=== PATIENT | female | born 1990 | race Caucasian/White ===

== ENCOUNTER 2018-12-11 11:21 | Emergency (ER) | payer MEDICAID ==
[~2018-12-11] VITALS: Ht 152.4 cm; Wt 54.0 kg
[2018-12-11 11:23] VITALS: Ht 152.4 cm; Wt 54.0 kg
[2018-12-11 13:00] VITALS: BP 122/78
== END 2018-12-11 13:00 | disposition home or self-care (01) ==
LOC: EDBD 11:21 → ED 11:21
DX: R07.89 Other chest pain (principal); R53.1 Weakness
CPT/HCPCS: Q0092

== ENCOUNTER 2019-04-12 20:58 | Emergency (ER) | payer MEDICAID ==
[~2019-04-12] VITALS: Ht 175.3 cm; Wt 51.3 kg
[2019-04-12 21:20] VITALS: Ht 175.3 cm; Wt 51.3 kg
[2019-04-12 22:47] LABS: BASOPHIL % 0.1 % (0-2); PLATELET COUNT 160 x10^3mcL (130-400); RED CELL DISTRIBUTION WIDTH 13.6 % (11.5-14.5)
[2019-04-12 22:52] LABS: CALCIUM 8.8 mg/dL (8.5-10.1); CARBON DIOXIDE 26.1 mmol/L (21-32); CHLORIDE SERUM 101 mmol/L (98-107); CREATININE SERUM 0.9 mg/dL (0.6-1.0); GFR1 > 60 mL/min; GLUCOSE SERUM 122 mg/dL (74-106); SODIUM SERUM 135 mmol/L (136-145)
[2019-04-12 22:56] LABS: ALBUMIN 3.2 g/dL (3.4-5.0); ALKALINE PHOSPHATASE 103 U/L (46-116); ALT/SGPT 55 U/L (14-59); AMYLASE 31 U/L (25-115); AST/SGOT 56 U/L (15-37); BILIRUBIN TOTAL 1.37 mg/dL (0.20-1.00); LIPASE 64 IU/L (73-393)
[2019-04-12 23:06] LABS: microscopic required? YES; urine erythrocyte 2+ (NEGATIVE)
[2019-04-13 00:42] VITALS: BP 105/57
== END 2019-04-13 00:42 | disposition home or self-care (01) ==
LOC: ED 20:58
PROVIDERS: Emergency Medicine
DX: N12 Tubulo-interstitial nephritis, not specified as acute or chronic (principal)
CPT/HCPCS: J0696; J1885; J7030